=== PATIENT | female | born 1995 | race Caucasian/White ===

== ENCOUNTER 2023-01-15 20:37 | Emergency (ER) | payer OTHER, MEDICAID ==
[~2023-01-15] VITALS: Ht 167.6 cm; Wt 106.7 kg
[2023-01-15 20:39] VITALS: TEMP 98.6
[2023-01-15] MEDS ORDERED: NS 1,000 ML IV ONE (21:10)
[2023-01-15 22:00] LABS: VENOUS BASE EXCESS -2.7 (-2.0-2.0); VENOUS HCO3 22.7 MMOL/L (23.0-27.0); VENOUS O2 SATURATION 88.9 % (60.0-80.0); VENOUS PARTIAL PRESSURE CO2 41.3 mmHg (38.0-50.0); VENOUS PARTIAL PRESSURE O2 55.9 mmHg (30.0-50.0); VENOUS PH 7.357 UNITS (7.330-7.430); VENOUS TOTAL CO2 23.9 MMOL/L (24.0-28.0)
[2023-01-15 22:09] LABS: BASO % 0.5 % (0.0-1.0); EOS # 0.3 10^3/uL (0.0-0.5); EOS % 2.9 % (0.0-3.0); HEMATOCRIT 40.2 % (36.0-47.0); HEMOGLOBIN 14.5 g/dl (12.0-15.5); LYMPH % 34.5 % (24.0-44.0); MEAN CORPUSCULAR HEMOGLOBIN 33.3 pg (27.0-33.0); MEAN CORPUSCULAR HGB CONC 36.1 g/dl (32.0-36.5); MEAN CORPUSCULAR VOLUME 92.2 fl (80.0-96.0); MONO # 0.5 10^3/uL (0.0-0.8); MONO % 6.1 % (2.0-8.0); NEUTROPHILS # 4.8 10^3/uL (1.5-8.5); NEUTROPHILS % 55.7 % (36.0-66.0); PLATELET COUNT, AUTOMATED 300 10^3/uL (150-450); RED BLOOD COUNT 4.36 10^6/uL (4.00-5.40); WHITE BLOOD COUNT 8.7 10^3/uL (4.0-10.0)
[2023-01-15 22:23] LABS: HEMOGLOBIN A1c 8.8 % (4.0-6.0)
[2023-01-15 22:31] LABS: ETHYL ALCOHOL (ETHANOL) < 0.003 % (0.000-0.010); LIPASE 37 U/L (12-53)
[2023-01-15 23:29] LABS: ACETONE/KETONE 0.12 MMOL/L (0.02-0.27)
[2023-01-15 23:38] LABS: ALBUMIN 3.2 G/DL (3.2-5.2); ALKALINE PHOSPHATASE 175 U/L (46-116); ALT/SGPT 60 U/L (7.0-40); AST/SGOT 23 U/L (<34); BILIRUBIN,DIRECT < 0.1 MG/DL (<0.4); BILIRUBIN,TOTAL 0.2 MG/DL (0.3-1.2); BLOOD UREA NITROGEN 12 MG/DL (9-23); CALCIUM LEVEL 9.2 MG/DL (8.5-10.1); CARBON DIOXIDE LEVEL 27 MMOL/L (20-31); CHLORIDE LEVEL 96 MMOL/L (98-107); CREATININE FOR GFR 0.69 MG/DL (0.55-1.30); GLOMERULAR FILTRATION RATE > 60.0 (>60); GLUCOSE, FASTING 615 MG/DL (60-100); POTASSIUM SERUM 4.1 MMOL/L (3.5-5.1); SODIUM LEVEL 131 MMOL/L (136-145); TOTAL PROTEIN 6.7 G/DL (5.7-8.2)
[2023-01-15 23:51] LABS: OSMOLALITY SERUM 305 MOSM/KG (275-295)
[2023-01-16] MEDS ORDERED: HumuLIN R (REGULAR) INSULIN (NovoLIN R) **100U/ML** PER UNIT IV STA (00:28)
[2023-01-16] MEDS ORDERED: NS 1,000 ML IV ONE (00:30)
[2023-01-16] MEDS ORDERED: LEVEMIR (INSULIN DETEMIR) 1 UNITS/0.01ML SC ONE (00:30)
[2023-01-16] MEDS ORDERED: BD P31MI2 SC (01:50)
[2023-01-16] MEDS ORDERED: LANTINJ4 SC (01:50)
[2023-01-16 01:52] VITALS: BP 152/90; O2SAT 99
== END 2023-01-16 02:19 | disposition home or self-care (01) ==
LOC: M ED 20:37
DX: E11.65 Type 2 diabetes mellitus with hyperglycemia (principal); Z79.4 Long term (current) use of insulin
CPT/HCPCS: 80047; 80048; 80076; 81001; 82010; 82077; 82803; 83036; 83690; 83930; 84702; 85025; 87040; 87486; 87581; 87633; 87798; 93005; 93041; 94760; 96374; 99285; J1815

== ENCOUNTER 2023-07-05 01:56 | Emergency (ER) | payer OTHER ==
[~2023-07-05] VITALS: Ht 167.6 cm; Wt 111.1 kg
[~2023-07-05 01:56] MED LIST: BD P31MI2 SC; LANTINJ4 SC
[2023-07-05 03:34] LABS: BASO % 0.3 % (0.0-1.0); EOS # 0.2 10^3/uL (0.0-0.5); EOS % 1.8 % (0.0-3.0); HEMATOCRIT 41.2 % (36.0-47.0); HEMOGLOBIN 13.9 g/dl (12.0-15.5); LYMPH # 3.4 10^3/uL (1.5-5.0); LYMPH % 36.8 % (24.0-44.0); MEAN CORPUSCULAR HEMOGLOBIN 32.7 pg (27.0-33.0); MEAN CORPUSCULAR HGB CONC 33.7 g/dl (32.0-36.5); MEAN CORPUSCULAR VOLUME 96.9 fl (80.0-96.0); MONO # 0.6 10^3/uL (0.0-0.8); MONO % 6.6 % (2.0-8.0); NEUTROPHILS # 4.9 10^3/uL (1.5-8.5); NEUTROPHILS % 54.2 % (36.0-66.0); PLATELET COUNT, AUTOMATED 308 10^3/uL (150-450); RED BLOOD COUNT 4.25 10^6/uL (4.00-5.40); WHITE BLOOD COUNT 9.1 10^3/uL (4.0-10.0)
[2023-07-05 03:55] LABS: LIPASE 32 U/L (12-53)
[2023-07-05 03:57] LABS: ALKALINE PHOSPHATASE 96 U/L (46-116); ALT/SGPT 28 U/L (7.0-40); AST/SGOT 17 U/L (<34); BILIRUBIN,DIRECT 0.1 MG/DL (<0.4); BILIRUBIN,TOTAL 0.4 MG/DL (0.3-1.2); BLOOD UREA NITROGEN 9 MG/DL (9-23); CALCIUM LEVEL 8.6 MG/DL (8.5-10.1); CARBON DIOXIDE LEVEL 26 MMOL/L (20-31); CHLORIDE LEVEL 106 MMOL/L (98-107); GLOMERULAR FILTRATION RATE > 60.0 (>60); GLUCOSE, FASTING 191 MG/DL (60-100); POTASSIUM SERUM 3.9 MMOL/L (3.5-5.1); SODIUM LEVEL 138 MMOL/L (136-145); TOTAL PROTEIN 6.5 G/DL (5.7-8.2)
[2023-07-05 04:03] LABS: HCG, SERUM QUALITATIVE NEGATIVE (NEGATIVE)
[2023-07-05] MEDS ORDERED: ISOVUE-370 76% 100ML VIAL As Ordered ONE (08:42)
[2023-07-05] MEDS: PANTOPRAZOLE 40MG VIAL IV ONE (09:05)
[2023-07-05] MEDS ORDERED: MAGN400T2 PO (09:32)
[2023-07-05] MEDS ORDERED: PANT-23 PO (09:32)
[2023-07-05] MEDS ORDERED: LANTINJ4 SC (09:32)
[2023-07-05] MEDS ORDERED: VENTAER INH (09:32)
[2023-07-05] MEDS ORDERED: CETI-24 PO (09:32)
[2023-07-05] MEDS ORDERED: HUMA100I5 SC (09:32)
[2023-07-05] MEDS ORDERED: LAMO200T3 PO (09:32)
[2023-07-05] MEDS ORDERED: SERT-141 PO (09:32)
[2023-07-05] MEDS ORDERED: JANU100T PO (09:32)
[2023-07-05] MEDS ORDERED: BUSP10TA PO (09:32)
[2023-07-05] MEDS ORDERED: EPCL1TAB PO (09:32)
[2023-07-05] MEDS ORDERED: TOPI100T9 PO (09:32)
[2023-07-05] MEDS ORDERED: TRAZ-252 PO (09:32)
[2023-07-05] MEDS ORDERED: HOME MED LIST COMPLETE! XX SCH (09:35)
[2023-07-05 11:20] VITALS: BP 128/58; TEMP 97; O2SAT 96
== END 2023-07-05 11:30 | disposition home or self-care (01) ==
LOC: M ED 01:56
DX: N83.202 Unspecified ovarian cyst, left side (principal); K62.5 Hemorrhage of anus and rectum; E11.9 Type 2 diabetes mellitus without complications; G40.909 Epilepsy, unspecified, not intractable, without status epilepticus; Z88.0 Allergy status to penicillin; Z88.1 Allergy status to other antibiotic agents; Z88.6 Allergy status to analgesic agent; Z79.52 Long term (current) use of systemic steroids; Z79.899 Other long term (current) drug therapy; Z79.4 Long term (current) use of insulin
CPT/HCPCS: 74177; 80048; 80076; 83690; 84703; 85025; 93041; 94760; 96374; 99285; C9113; Q9967

== ENCOUNTER 2023-10-26 00:22 | Emergency (ER) | payer OTHER ==
[~2023-10-26] VITALS: Ht 167.6 cm; Wt 111.4 kg
[~2023-10-26 00:22] MED LIST changes: +BUSP10TA PO; +CETI-24 PO; +EPCL1TAB PO; +HUMA100I5 SC; +JANU100T PO; +LAMO200T3 PO; +MAGN400T2 PO; +PANT-23 PO; +SERT-141 PO; +TOPI100T9 PO; +TRAZ-252 PO; +VENTAER INH
[2023-10-26 07:43] VITALS: BP 140/66; TEMP 96.9; O2SAT 95
== END 2023-10-26 10:54 | disposition left against medical advice (07) ==
LOC: M ED 00:22
DX: Z53.21 Procedure and treatment not carried out due to patient leaving prior to being seen by health care provider (principal)

== ENCOUNTER → 2023-12-11 | Day surgery (SDC) | payer OTHER ==
[~2023-12-11] VITALS: Ht 167.6 cm; Wt 113.4 kg
[~2023-12-11] MED LIST changes: +ACETAMINOPHEN 1000MG 100ML IV BAG As Ordered ONE; +HYDROMORPHONE HCL 0.5 MG/ 0.5 ML SYRINGE IV PRN; +LIDOCAINE 2% 100MG/5ML SDV (FOR ANES.) As Ordered ONE; +LR 1,000 ML IV SCH; +MIDAZOLAM INJ 2MG/2ML VIAL As Ordered ONE; +NORE0.353 PO; +ONDANSETRON 4MG 2ML VIAL As Ordered ONE; +ONDANSETRON 4MG 2ML VIAL IV PRN; +ROCURONIUM BROMIDE 50MG/5ML VIAL As Ordered ONE; +SUGAMMADEX SODIUM 500 MG/5 ML VIAL (BRIDION) As Ordered ONE; +fentaNYL 100 MCG/2 ML INJECTION As Ordered ONE; +fentaNYL 100 MCG/2 ML INJECTION IV PRN; +oxyCODONE 5MG TAB PO PRN; +propofoL 200 MG/20 ML VIAL As Ordered ONE
[2023-12-11] MEDS: LIDOCAINE W/EPINEPHRINE 1% 20ML VIAL As Ordered ONE (11:37)
[2023-12-11 12:45] VITALS: BP 139/96; TEMP 97.5; O2SAT 94
== END | disposition home or self-care (01) ==
LOC: M SDC 08:40
PROVIDERS: ATTEND Dentist Oral and Maxillofacial Surgery
DX: K01.1 Impacted teeth (principal); K02.9 Dental caries, unspecified; E11.9 Type 2 diabetes mellitus without complications; I25.2 Old myocardial infarction; Z95.5 Presence of coronary angioplasty implant and graft; Z86.73 Personal history of transient ischemic attack (TIA), and cerebral infarction without residual deficits; Z68.41 Body mass index [BMI] 40.0-44.9, adult; F17.210 Nicotine dependence, cigarettes, uncomplicated; Z88.0 Allergy status to penicillin; Z88.5 Allergy status to narcotic agent; Z88.8 Allergy status to other drugs, medicaments and biological substances; Z79.899 Other long term (current) drug therapy
CPT/HCPCS: 81025; 88300; D7220; J0131; J1100; J2250; J2405; J3010

== ENCOUNTER 2024-01-08 19:35 | Emergency (ER) | payer OTHER ==
[~2024-01-08] VITALS: Ht 167.6 cm; Wt 115.8 kg
[~2024-01-08 19:35] MED LIST changes: -ACETAMINOPHEN 1000MG 100ML IV BAG As Ordered ONE; -HYDROMORPHONE HCL 0.5 MG/ 0.5 ML SYRINGE IV PRN; -LIDOCAINE 2% 100MG/5ML SDV (FOR ANES.) As Ordered ONE; -LR 1,000 ML IV SCH; -MIDAZOLAM INJ 2MG/2ML VIAL As Ordered ONE; -ONDANSETRON 4MG 2ML VIAL As Ordered ONE; -ONDANSETRON 4MG 2ML VIAL IV PRN; -ROCURONIUM BROMIDE 50MG/5ML VIAL As Ordered ONE; -SUGAMMADEX SODIUM 500 MG/5 ML VIAL (BRIDION) As Ordered ONE; -fentaNYL 100 MCG/2 ML INJECTION As Ordered ONE; -fentaNYL 100 MCG/2 ML INJECTION IV PRN; -oxyCODONE 5MG TAB PO PRN; -propofoL 200 MG/20 ML VIAL As Ordered ONE
[2024-01-08 19:40] VITALS: TEMP 97.1
[2024-01-08 20:42] LABS: BASO % 0.4 % (0.0-1.0); EOS # 0.2 10^3/uL (0.0-0.5); EOS % 2.5 % (0.0-3.0); HEMATOCRIT 44.3 % (36.0-47.0); LYMPH % 37.7 % (24.0-44.0); MEAN CORPUSCULAR HEMOGLOBIN 32.5 pg (27.0-33.0); MEAN CORPUSCULAR HGB CONC 33.9 g/dl (32.0-36.5); MEAN CORPUSCULAR VOLUME 95.9 fl (80.0-96.0); MONO # 0.6 10^3/uL (0.0-0.8); MONO % 7.2 % (2.0-8.0); NEUTROPHILS # 4.1 10^3/uL (1.5-8.5); NEUTROPHILS % 51.9 % (36.0-66.0); PLATELET COUNT, AUTOMATED 301 10^3/uL (150-450); RED BLOOD COUNT 4.62 10^6/uL (4.00-5.40); WHITE BLOOD COUNT 7.9 10^3/uL (4.0-10.0)
[2024-01-08 21:04] LABS: LIPASE 34 U/L (12-53)
[2024-01-08 21:06] LABS: ALBUMIN 3.3 G/DL (3.2-5.2); ALKALINE PHOSPHATASE 102 U/L (46-116); ALT/SGPT 26 U/L (7.0-40); AST/SGOT 12 U/L (<34); BILIRUBIN,DIRECT < 0.1 MG/DL (<0.4); BILIRUBIN,TOTAL < 0.2 MG/DL (0.3-1.2); BLOOD UREA NITROGEN 11 MG/DL (9-23); CALCIUM LEVEL 9.6 MG/DL (8.5-10.1); CARBON DIOXIDE LEVEL 26 MMOL/L (20-31); CHLORIDE LEVEL 109 MMOL/L (98-107); CREATININE FOR GFR 0.71 MG/DL (0.55-1.30); GLOMERULAR FILTRATION RATE > 60.0 (>60); GLUCOSE, FASTING 152 MG/DL (60-100); POTASSIUM SERUM 3.9 MMOL/L (3.5-5.1); SODIUM LEVEL 139 MMOL/L (136-145)
[2024-01-08 21:42] LABS: HCG, SERUM QUALITATIVE NEGATIVE (NEGATIVE)
[2024-01-08 23:50] VITALS: O2SAT 98
[2024-01-09] VITALS: BP 122/65
== END 2024-01-09 00:13 | disposition home or self-care (01) ==
LOC: M ED 19:35
DX: A09 Infectious gastroenteritis and colitis, unspecified (principal); J44.9 Chronic obstructive pulmonary disease, unspecified; J45.909 Unspecified asthma, uncomplicated; F19.10 Other psychoactive substance abuse, uncomplicated; F17.200 Nicotine dependence, unspecified, uncomplicated; Z79.4 Long term (current) use of insulin; Z79.899 Other long term (current) drug therapy; Z88.0 Allergy status to penicillin; Z88.8 Allergy status to other drugs, medicaments and biological substances

== ENCOUNTER 2024-06-09 05:26 | Emergency (ER) | payer OTHER ==
[~2024-06-09] VITALS: Ht 167.6 cm; Wt 116.2 kg
[2024-06-09 05:28] VITALS: BP 131/76; TEMP 96.7; O2SAT 98
[2024-06-09] MEDS: NS (Normal Saline) 0.9% 1,000 ML IV ONE (08:21)
[2024-06-09 08:23] LABS: BASO % 0.4 % (0.0-1.0); EOS # 0.2 10^3/uL (0.0-0.5); EOS % 2.2 % (0.0-3.0); HEMATOCRIT 42.1 % (36.0-47.0); HEMOGLOBIN 14.4 g/dl (12.0-15.5); LYMPH # 3.2 10^3/uL (1.5-5.0); LYMPH % 34.7 % (24.0-44.0); MEAN CORPUSCULAR HEMOGLOBIN 33.3 pg (27.0-33.0); MEAN CORPUSCULAR HGB CONC 34.2 g/dl (32.0-36.5); MEAN CORPUSCULAR VOLUME 97.2 fl (80.0-96.0); MONO # 0.6 10^3/uL (0.0-0.8); MONO % 6.7 % (2.0-8.0); NEUTROPHILS # 5.1 10^3/uL (1.5-8.5); NEUTROPHILS % 55.5 % (36.0-66.0); PLATELET COUNT, AUTOMATED 298 10^3/uL (150-450); RED BLOOD COUNT 4.33 10^6/uL (4.00-5.40); WHITE BLOOD COUNT 9.1 10^3/uL (4.0-10.0)
[2024-06-09 08:33] LABS: KETONE, URINE AUTO RFX NEGATIVE (NEGATIVE); LEUKOCYTE ESTERASE UR AUTO RFX NEGATIVE (NEGATIVE); NITRITE, URINE AUTO RFX NEGATIVE (NEGATIVE); RBC, URINE AUTO RFX 0 /HPF (0-3); SQUAM EPITHELIAL CELL UR AURFX 6 /HPF (0-6); WBC, URINE AUTO RFX 0 /HPF (0-3)
[2024-06-09 08:47] LABS: LIPASE 40 U/L (12-53)
[2024-06-09 08:49] LABS: ALBUMIN 3.1 G/DL (3.2-5.2); ALKALINE PHOSPHATASE 112 U/L (35-104); ALT/SGPT 27 U/L (7.0-40); AST/SGOT 12 U/L (<34); BILIRUBIN,DIRECT < 0.1 MG/DL (<0.4); BILIRUBIN,TOTAL 0.2 MG/DL (0.3-1.2); BLOOD UREA NITROGEN 10 MG/DL (9-23); CARBON DIOXIDE LEVEL 26 MMOL/L (20-31); CHLORIDE LEVEL 104 MMOL/L (98-107); CREATININE FOR GFR 0.77 MG/DL (0.55-1.30); GLOMERULAR FILTRATION RATE > 60.0 (>60); GLUCOSE, FASTING 251 MG/DL (60-100); POTASSIUM SERUM 4.3 MMOL/L (3.5-5.1); SODIUM LEVEL 141 MMOL/L (136-145); TOTAL PROTEIN 6.9 G/DL (5.7-8.2)
[2024-06-09 09:01] LABS: HCG, SERUM QUALITATIVE NEGATIVE (NEGATIVE)
[2024-06-09 12:00] LABS: HEMOGLOBIN A1c 7.5 % (4.0-6.0)
== END 2024-06-09 11:17 | disposition home or self-care (01) ==
LOC: M ED 05:26
DX: R11.0 Nausea (principal); R53.1 Weakness; E11.65 Type 2 diabetes mellitus with hyperglycemia; I25.2 Old myocardial infarction; F32.A Depression, unspecified; F41.9 Anxiety disorder, unspecified; F31.9 Bipolar disorder, unspecified; J44.9 Chronic obstructive pulmonary disease, unspecified; F90.9 Attention-deficit hyperactivity disorder, unspecified type; Z95.5 Presence of coronary angioplasty implant and graft; F17.200 Nicotine dependence, unspecified, uncomplicated; F17.290 Nicotine dependence, other tobacco product, uncomplicated; Z79.4 Long term (current) use of insulin; Z79.899 Other long term (current) drug therapy; Z88.0 Allergy status to penicillin; Z88.8 Allergy status to other drugs, medicaments and biological substances

== ENCOUNTER 2025-02-04 18:12 | Emergency (ER) | payer OTHER ==
[~2025-02-04] VITALS: Ht 165.1 cm; Wt 114.0 kg
[~2025-02-04 18:12] MED LIST changes: +TOPI-257 PO; -TOPI100T9 PO
[2025-02-04] MEDS ORDERED: PALI1TAB3 (18:28)
[2025-02-04] MEDS ORDERED: FARX1TAB3 (18:28)
[2025-02-04] MEDS ORDERED: NORE1PAT (18:28)
[2025-02-04] MEDS ORDERED: ROSU40TA81 (18:28)
[2025-02-04] MEDS ORDERED: LEVE500T5 (18:28)
[2025-02-04] MEDS ORDERED: SERTRALINE (18:28)
[2025-02-04] MEDS ORDERED: GLIP-320 (18:28)
[2025-02-04 18:55] LABS: BASO # 0.0 10^3/uL (0.0-0.2); BASO % 0.4 % (0.0-1.0); EOS # 0.2 10^3/uL (0.0-0.5); EOS % 1.9 % (0.0-3.0); LYMPH # 3.7 10^3/uL (1.5-5.0); LYMPH % 34.6 % (24.0-44.0); MONO # 0.6 10^3/uL (0.0-0.8); MONO % 5.9 % (2.0-8.0); NEUTROPHILS # 6.1 10^3/uL (1.5-8.5); NEUTROPHILS % 56.8 % (36.0-66.0); PLATELET COUNT, AUTOMATED 359 10^3/uL (150-450)
[2025-02-04 19:00] LABS: KETONE, URINE AUTO RFX NEGATIVE (NEGATIVE); LEUKOCYTE ESTERASE UR AUTO RFX NEGATIVE (NEGATIVE); MUCUS, URINE RFX SMALL (NEGATIVE); NITRITE, URINE AUTO RFX NEGATIVE (NEGATIVE); RBC, URINE AUTO RFX TNTC /HPF (0-3); SQUAM EPITHELIAL CELL UR AURFX 1 /HPF (0-6); WBC, URINE AUTO RFX 8 /HPF (0-3)
[2025-02-04 19:25] LABS: ALT/SGPT 22 U/L (7.0-40); AST/SGOT 35 U/L (<34); CALCIUM LEVEL 9.0 MG/DL (8.5-10.1); CARBON DIOXIDE LEVEL 28 MMOL/L (20-31); CHLORIDE LEVEL 98 MMOL/L (98-107); CREATININE FOR GFR 0.83 MG/DL (0.55-1.30); GLOMERULAR FILTRATION RATE > 90.0 (>60); POTASSIUM SERUM 4.3 MMOL/L (3.5-5.1); SODIUM LEVEL 136 MMOL/L (136-145)
[2025-02-04 19:27] LABS: HCG, SERUM QUALITATIVE NEGATIVE (NEGATIVE)
[2025-02-04 20:22] VITALS: BP 124/64; TEMP 98.1; O2SAT 95
== END 2025-02-04 22:09 | disposition home or self-care (01) ==
LOC: M ED 18:51
DX: N93.8 Other specified abnormal uterine and vaginal bleeding (principal); N83.202 Unspecified ovarian cyst, left side; N80.9 Endometriosis, unspecified; Z88.0 Allergy status to penicillin; Z88.1 Allergy status to other antibiotic agents; Z88.6 Allergy status to analgesic agent; Z88.8 Allergy status to other drugs, medicaments and biological substances; Z79.899 Other long term (current) drug therapy